=== PATIENT | female | born 1975 | race Hispanic/Latino ===

== ENCOUNTER 2019-04-16 07:42 | Observation (INO) | payer BC ==
[2019-04-15 12:39] LABS: BASOPHILS % (AUTO) 0.3 % (0.0-5.0); EOSINOPHILS % (AUTO) 0.1 % (0.0-8.0); HEMATOCRIT 36.1 % (36-48); LYMPHOCYTES % (AUTO) 19.5 % (21.0-51.0); MEAN CORPUSCULAR HEMOGLOBIN 27.2 pg (27.0-33.0); MEAN CORPUSCULAR HGB CONC 32.1 g/dL (32.0-36.0); MEAN CORPUSCULAR VOLUME 84.7 fL (79-99); MONOCYTES % (AUTO) 6.4 % (3.0-13.0); NEUTROPHILS % (AUTO) 73.4 % (40.0-77.0); PLATELET COUNT (AUTO) 321 K/uL (130-400); RED BLOOD CELL COUNT(AUTO) 4.26 MIL/uL (4.00-5.50); RED CELL DISTRIBUTION WIDTH 13.6 % (11.0-15.5); WHITE BLOOD COUNT (AUTO) 7.4 K/uL (4.8-10.8)
[2019-04-15 12:59] VITALS: BP 123/72
[~2019-04-16] VITALS: Ht 160 cm; Wt 57.1 kg
[2019-04-16] VITALS (23 sets, daily range): BP systolic 111–133; BP diastolic 59–87
[~2019-04-16 07:42] MED LIST: CALDOLOR 800MG+NS 250ML 250 ML IV SCH; CLINDAMYCIN 600 MG/D5% WATER 50 ML IV SCH; DICY20TA11 PO; ESOM40CA PO; LEVO5TAB29 PO; LEVO75CA2 PO; LEVO88CA2 PO; NORE-8 PO; PROM25TA7 PO
[2019-04-16] MEDS ORDERED: LEVOFLOXACIN 500 MG/D5W 100 ML 100 ML ONE (08:29)
[2019-04-16] MEDS: LACTATED RINGERS 1000ML 1,000 ML IV SCH ×2 (08:53→12:25)
[2019-04-16] MEDS ORDERED: PROM25I IM (09:05)
[2019-04-16] MEDS ORDERED: SCOPOLAMINE HYDROBROMIDE 1 EACH ADH..PATCH TD ONE (09:07)
[2019-04-16] MEDS ORDERED: LIDOCAINE PF 2% 5ML ABBOJECT ONE (09:16)
[2019-04-16] MEDS ORDERED: ONDANSETRON HCL 4 MG/2 ML VIAL ONE (09:16)
[2019-04-16] MEDS ORDERED: PROPOFOL 10 MG/ML 20ML VIAL IV ONE (09:16)
[2019-04-16] MEDS ORDERED: ROCURONIUM 10MG/1ML SYR 10 MG/ML ML ONE (09:16)
[2019-04-16] MEDS ORDERED: DEXAMETHASONE SOD PHOSPHATE 10MG/ML 1ML VIAL ONE ×2 (09:16→10:03)
[2019-04-16] MEDS ORDERED: MIDAZOLAM HCL 1 MG/ML 2ML VIAL ONE (09:16)
[2019-04-16] MEDS ORDERED: FENTANYL CITRATE PF 50 MCG/1 ML 5ML AMP IV ONE (09:17)
[2019-04-16] MEDS ORDERED: SUCCINYLCHOLINE 200MG/10ML SYR ONE (09:20)
[2019-04-16] MEDS ORDERED: L.AC1CAP6 PO (09:22)
[2019-04-16] MEDS ORDERED: GLYCOPYRROLATE 1 MG/5 ML SYRINGE ONE (10:06)
[2019-04-16] MEDS ORDERED: NEOSTIGMINE 5MG/5ML SYR IV ONE (10:06)
[2019-04-16] MEDS ORDERED: EPHEDRINE SULFATE 50 MG/ML AMPULE ONE (10:08)
[2019-04-16] MEDS ORDERED: LIDOCAINE 1%-EPI 1:100,000 20 ML VIAL IJ ONE (11:27)
[2019-04-16] MEDS ORDERED: FENTANYL CITRATE PF 50 MCG/1 ML 2ML VIAL ONE (11:51)
[2019-04-16] MEDS ORDERED: MEPERIDINE-PF 25 MG/ML SYG ONE ×2 (12:08→13:50)
[2019-04-16] MEDS ORDERED: DEXTROSE 5 %-0.45 % NACL 1,000 ML IV PRN (12:09)
[2019-04-16] MEDS ORDERED: ESMOLOL HCL 10 MG/ML 10 ML VIAL ONE (12:12)
[2019-04-16] MEDS ORDERED: SIMETHICONE 80 MG TAB.CHEW PO PRN (12:15)
[2019-04-16] MEDS ORDERED: ACETAMINOPHEN-CODEINE 300/30MG TAB PO PRN (12:15)
[2019-04-16] MEDS ORDERED: BISACODYL 10 MG SUPP.RECT RC PRN (12:15)
[2019-04-16] MEDS ORDERED: PROMETHAZINE HCL 25 MG/ML 1ML AMPULE IM PRN ×2 (12:15)
[2019-04-16] MEDS ORDERED: MEPERIDINE-PF 75 MG/ML SYG IM PRN (12:15)
[2019-04-16] MEDS ORDERED: BUPIVACAINE/PF 0.25% 30ML VIAL IJ ONE (12:15)
[2019-04-16] MEDS ORDERED: DOCUSATE SODIUM 100 MG CAP PO PRN (12:15)
[2019-04-16] MEDS ORDERED: MEPERIDINE-PF 50 MG/ML SYG ONE (13:50)
--- NOTE | 2019-04-16 16:19 | NUR ---
PATIENT C/O "FAST HEARTBEAT". HEART RATES ASSESSED AT 122. PT STATES SHE FEELS ANXIOUS. ENCOURAGED PT TO TAKE DEEP BREATHS. LIGHTS LOWERED. BP TAKEN 131/78. HEART RATE REASSESSED AT 106. PT STATS FEELING BETTER. CALL LIGHT LEFT IN REACH, ADVISED PATIENT TO WITH ANY NEEDS OR CONCERNS.
--- NOTE | 2019-04-16 18:20 | NUR ---
FAIR CATHETER REMOVED AT THIS TIME. 600ML OF CLEAR YELLOW URINE EMPTIED. ASSISTED PATIENT TO SIT ON THE EDGE OF BED. NO C/O DIZZINESS REPORTED. CALL LIGHT LEFT IN REACH. ADVISED PATIENT TO CALL FOR ASSISTANCE WHEN AMBULATING FOR THE FIRST TIME.
[2019-04-16] MEDS: CALDOLOR 800MG+NS 250ML 250 ML IV SCH (20:06)
[2019-04-17 03:25] VITALS: BP 134/77
[2019-04-17] MEDS: CALDOLOR 800MG+NS 250ML 250 ML IV SCH (04:34)
[2019-04-17 06:58] LABS: HEMATOCRIT 29.6 % (36-48); MEAN CORPUSCULAR HEMOGLOBIN 26.8 pg (27.0-33.0); MEAN CORPUSCULAR HGB CONC 31.1 g/dL (32.0-36.0); MEAN CORPUSCULAR VOLUME 86.3 fL (79-99); PLATELET COUNT (AUTO) 210 K/uL (130-400); RED BLOOD CELL COUNT(AUTO) 3.43 MIL/uL (4.00-5.50); RED CELL DISTRIBUTION WIDTH 13.2 % (11.0-15.5); WHITE BLOOD COUNT (AUTO) 11.1 K/uL (4.8-10.8)
[2019-04-17 07:38] VITALS: BP 119/72
[2019-04-17] MEDS ORDERED: PANTOPRAZOLE SODIUM 40 MG TABLET.DR PO SCH (09:00)
[2019-04-17 11:48] VITALS: BP 128/77
[2019-04-17] MEDS ORDERED: FLU VACC QS2019-20 36MOS UP/PF 60 MCG/0.5 ML ML IM ONE (12:00)
[2019-04-17] MEDS ORDERED: FLU VACC QS2019-20 36MOS UP/PF 60 MCG/0.5 ML ML IM SCH (12:00)
[2019-04-17] MEDS ORDERED: IBUPROFEN 800 MG TAB PO SCH (12:15)
--- NOTE | 2019-04-17 15:05 | NUR ---
INSTRUCTIONS READ AND EXPLAINED TO PATIENT. PRESCRIPTION FOR MOTRIN 800, SURFAK, TYLENOL #3 HANDED TO PATIENT. INCISION CARE REVIEWED. QUESTIONS INVITED AND ANSWERED. NO COMPLAINTS OR CONCERNS ADDRESSED FROM PATIENT ON DISCHARGE.
--- NOTE | 2019-04-17 15:20 | NUR ---
PATIENT LEFT UNIT VIA WHEELCHAIR ACCOMPANIED BY . PERSONAL VEHICLE USED FOR TRANSPORTATION.
== END 2019-04-17 15:20 | disposition home or self-care (01) ==
LOC: DAH 07:42 → WSH 07:43 → DAH 16:49
DX: N92.0 Excessive and frequent menstruation with regular cycle (principal); K66.0 Peritoneal adhesions (postprocedural) (postinfection); N94.6 Dysmenorrhea, unspecified; N80.0 Endometriosis of uterus
CPT/HCPCS: 36415 ×2; 58552; 84703; 85025; 85027; 86850; 86900; 86901; 88307; 96365; 96366; 96367; 96372; A4215 ×3; A4221; A4222; A4223; A4344; A4663; A4930; C1769 ×2; G0168; G0378 ×21; J0330; J1100 ×2; J1741 ×3; J1956; J2001; J2175 ×3; J2250; J2405; J2550; J2704; J2710; J3010 ×2; J3490 ×6; J7042; J7120 ×2; Q2035